=== PATIENT | male | born 1995 | race American Indian/Alaskan Native ===

== ENCOUNTER 2018-03-19 08:11 | Emergency (ER) | payer MEDICAID, OTHER, SELFPAY ==
[2018-03-19] VITALS (7 sets, daily range): BP systolic 106–139; BP diastolic 66–101; PULSE 67–100; RESP 10–18; TEMP 36.3; O2SAT 94–100
--- NOTE | 2018-03-19 08:13 | ED.GENADULT ---
HPI - General Adult General Chief complaint: Altered Mental Status Stated complaint: brought in unresponsive/possible OD Time Seen by Provider: 03/19/18 08:12 Source: patient Mode of arrival: other ( bus) Limitations: altered mental status History of Present Illness HPI narrative: we were called out to the frontal horn unresponsive patient where we found the patient laying down the seats of a bus responsive only to painful stimuli. No reports of trauma. Was struck reports that the patient got on the bus fine and then a insurance business analyst noticed that the patient slumped over and became unresponsive. The insurance business analyst did have Narcan with him. The patient was given 4 mg of intranasal Narcan 1 time and the patient responded within 10-20 seconds. Becoming alert. Patient was not forthcoming with giving any answers. He denied shooting any heroin or taking any meth. He denied using any other drugs. He denied drinking. He states he remembers getting on the bus but then would not answer any other questions after that. he did not answer any questions about where he was coming from where he was going. He states that he felt fine Related Data Home Medications Medication Instructions Recorded Confirmed No Known Home Medications 03/19/18 03/19/18 Allergies Allergy/AdvReac Type Severity Reaction Status Date / Time acetaminophen [From Vicodin] Allergy Unknown Verified 03/19/18 08:36 hydrocodone [From Vicodin] Allergy Unknown Verified 03/19/18 08:36 Review of Systems Review of Systems other than saying he has occasional chest pain patient is unwilling to answer any review of systems questions other ( patient unwilling to answer any questions) Constitutional Denies fever(s) Cardiovascular Reports chest pain ( states he has been having off and on chest pain for some time now) [facility] Medical History Healthy adult (Acute) Social History Smoking Status: Current some day smoker Comment: patient denies medical history unwilling to answer any other past medical family social history Exam Initial Vital Signs Initial Vital Signs: Vital Signs Temperature 97.3 F L 03/19/18 08:22 Pulse Rate 100 H 03/19/18 08:22 Respiratory Rate 10 L 03/19/18 08:22 Blood Pressure 139/101 H 03/19/18 08:22 Pulse Oximetry 100 03/19/18 08:22 Const General: No cooperative ( unwilling to participate in the review of systems), comfortable, well developed and well groomed Orientation: alert and awake [facility] Head: normal to inspection, normocephalic and atraumatic Ears: hearing grossly normal bilaterally Eyes Pupils: PERRL Chest Chest: normal inspection of the chest Resp Effort & Inspection: normal respiratory effort Auscultation: clear to auscultation bilaterally Cardio Rate: regular rate Rhythm: regular rhythm Heart Sounds: no murmurs Pulses: radial pulses present GI Inspection: non-distended Palpation: soft, No firm and No tender Skin Other: patient with a 1 cm area on his left anterior upper arm concerning for a site where he would inject drugs. Does have a small amount of blood in this area. No surrounding erythema. No vesicles. Neuro General: alert and awake Other: After given the Narcan in the bus the patient was able to ambulate off the bus. Extrem Other: No gross deformities Psych Appearance: grossly normal, well kempt and not disheveled Course Orders Ordered: ED Orders 03/19/18 08:14 Consult to Conversion Developer Stat EKG-12 Lead Stat 03/19/18 08:15 Acetaminophen Stat Complete Blood Count AUTO DIFF Stat Comprehensive Metabolic Panel Stat Ethanol (ETOH) Stat Lipase Stat Salicylate Stat 03/19/18 08:30 Urine Drug Screen, Rapid Stat Sodium Chloride (Normal Saline 0.9%) 1,000 mls @ 150 mls/hr IV CONT DAVE Last Admin: 03/19/18 09:07 Dose: 150 mls/hr Discontinued Medications Sodium Chloride (Normal Saline 0.9%) 1,000 mls @ 1,000 mls/hr IV BOLUS ONE Stop: 03/19/18 09:13 Last Infusion: 03/19/18 09:06 Dose: 0 mls/hr Admin: 03/19/18 08:15 Dose: 1,000 mls/hr Vital Signs - 8 hr 03/19/18 08:22 03/19/18 08:42 03/19/18 09:07 Temperature 97.3 F L Pulse Rate 100 H 94 H 91 H Respiratory Rate 10 L 14 10 L Blood Pressure 139/101 H Blood Pressure [Left Arm] 131/98 H 121/92 H Pulse Oximetry 100 99 99 03/19/18 09:51 03/19/18 10:21 03/19/18 11:38 Temperature Pulse Rate 73 67 72 Respiratory Rate 12 12 17 Blood Pressure Blood Pressure [Left Arm] 112/77 106/66 115/83 H Pulse Oximetry 94 94 96 03/19/18 12:10 Temperature Pulse Rate 69 Respiratory Rate 18 Blood Pressure Blood Pressure [Left Arm] 115/77 Pulse Oximetry 96 Medical Decision Making MDM Narrative Medical decision making narrative: patient responded well to 4 mg of intranasal Narcan in the bus. The Narcan that was administered was provided by a overdose kit by the insurance business analyst. Patient was able to ambulate off the bus afterwards. Patient denied taking any illicit substances. He was unwilling to participate in obtaining history. Social work consult placed. Patient was unwilling to talk with social work. Patient did have an elevated alcohol level. His mother was contacted and will come to the emergency department to pick him up. No further Narcan was needed and patient never had any respiratory depression while being here in the emergency department. I suspect that his altered mental status was secondary to alcohol and probable opioid ingestion Despite his denial these. Patient denied suicidal ideation. He was given resources with regard to his substance abuse. Lab Data Result diagrams: 03/19/18 08:15 03/19/18 08:15 Lab Results 03/19/18 03/19/18 03/19/18 Range/Units 08:15 08:15 08:30 WBC 5.4 (4.5-11.0) X10^3/uL RBC 5.28 (4.5-5.9) X10^6/uL Hgb 17.4 (13.5-17.5) g/dL Hct 50.4 (41-53) % MCV 95.4 (80-100) fL MCH 32.9 (26-34) PG MCHC 34.5 (30-36) % RDW 15.6 H (11.6-14.8) % Plt Count 256 (150-400) X10^3/uL Neut % (Auto) 73.5 (50-75) % Lymph % (Auto) 18.7 L (25-40) % [place] % (Auto) 6.6 (3-14) % Eos % (Auto) 0.6 L (2-4) % Baso % (Auto) 0.6 (0-2) % Neut # (Auto) 4000 (5834-3301) /uL Sodium 144 (137-145) mmol/L Potassium 3.9 (3.4-5.1) mmol/L Chloride 105 (98-107) mmol/L Carbon Dioxide 25 (22-32) mmol/L BUN 5 L (9-20) mg/dL Creatinine 0.90 (0.66-1.25) mg/dL Estimated GFR > 60.0 (>60) mL/min BUN/Creatinine Ratio 5.6 L (6-22) Glucose 116 H (70-100) mg/dL Calcium 8.7 (8.4-10.2) mg/dL Total Bilirubin 0.6 (0.2-1.3) mg/dL AST 48 (17-59) IU/L ALT 33 (21-72) IU/L Alkaline Phosphatase 90 (38-126) U/L Total Protein 8.1 (6.3-8.2) g/dL Albumin 4.9 (3.5-5.0) g/dL Globulin 3.2 (1.7-4.1) g/dL Albumin/Globulin Ratio 1.5 (1.0-2.8) Lipase 34 (23-300) U/L Salicylates < 1.0 (<20) mg/dL Urine Opiates Screen Negative (Negative) Ur Oxycodone Screen Negative (Negative) Urine Methadone Screen Negative (Negative) Acetaminophen < 10 L (10-30) ug/mL Ur Barbiturates Screen Negative (Negative) U Tricyclic Antidepress Negative (Negative) Ur Phencyclidine Scrn Negative (Negative) Ur Amphetamines Screen Negative (Negative) U Methamphetamines Scrn Negative (Negative) Ur MDMA Scrn (Ecstasy) Negative (Negative) U Benzodiazepines Scrn Negative (Negative) Urine Cocaine Screen Negative (Negative) U Marijuana (THC) Screen Positive H (Negative) Ethyl Alcohol 332 mg/dL ECG Data Attestation: I personally reviewed and interpreted this ECG as follows: Prior ECG tracings: not available for review Interpretation: sinus tachycardia ventricular rate of 101 normal axis normal QRS Normal QTC No ST T wave changes Discharge Plan Departure Patient Disposition: Home, Self-Care Clinical Impression: Alcoholic intoxication, Altered mental status, Substance abuse Instructions: Alcohol Use Disorder, DI for Alcohol Abuse, DI for Opioid Addiction Activity Restrictions/Additional Instructions: you're not to drive for the next 24 hr or in the future if you decide to take intoxicating substances. Highly recommend that you contact your primary care doctor for a follow-up. Also highly recommend that you seek help for your alcohol and substance abuse. You may return to the emergency department at any point for any new or worsening symptoms. Your discharged into the care of her mother. Prescriptions: No Action No Known Home Medications RF: 0
[2018-03-19] MEDS: SODIUM CHLORIDE 0.9% 1,000 ML 1000 ML IV (08:15)
[2018-03-19 08:32] LABS: Add Manual Diff / Slide Review NO; Basophils Percent Auto 0.6 % (0-2); Eosinophils Percent Auto 0.6 % (2-4); Hematocrit 50.4 % (41-53); Hemoglobin 17.4 g/dL (13.5-17.5); Lymphocytes Percent Auto 18.7 % (25-40); Mean Corpuscular HGB Conc 34.5 % (30-36); Mean Corpuscular Hemoglobin 32.9 PG (26-34); Mean Corpuscular Volume 95.4 fL (80-100); Monocytes Percent Auto 6.6 % (3-14); Neutrophils Absolute Auto 4000 /uL (3000-5900); Neutrophils Percent Auto 73.5 % (50-75); Platelet Count 256 X10^3/uL (150-400); Red Blood Cell Count 5.28 X10^6/uL (4.5-5.9); Red Cell Distribution Width 15.6 % (11.6-14.8); White Blood Cell Count 5.4 X10^3/uL (4.5-11.0)
--- NOTE | 2018-03-19 08:41 | PC.NURSE ---
At this time pt is alert/ oriented to time, place, person. Able to walk w/o difficulty. Clear speech.
[2018-03-19 08:43] LABS: Acetaminophen < 10 ug/mL (10-30); Alanine Aminotransferase 33 IU/L (21-72); Albumin 4.9 g/dL (3.5-5.0); Albumin Globulin Ratio 1.5 (1.0-2.8); Alkaline Phosphatase 90 U/L (38-126); Aspartate Aminotransferase 48 IU/L (17-59); BUN Creatinine Ratio 5.6 (6-22); Bilirubin Total 0.6 mg/dL (0.2-1.3); Blood Urea Nitrogen 5 mg/dL (9-20); Calcium 8.7 mg/dL (8.4-10.2); Carbon Dioxide 25 mmol/L (22-32); Chloride 105 mmol/L (98-107); Estimated Glomerular Filt Rate > 60.0 mL/min (>60); Globulin 3.2 g/dL (1.7-4.1); Glucose 116 mg/dL (70-100); HEMOLYSIS 28 (0-50); Lipase 34 U/L (23-300); Potassium 3.9 mmol/L (3.4-5.1); Salicylate < 1.0 mg/dL (<20); Sodium 144 mmol/L (137-145); Total Protein 8.1 g/dL (6.3-8.2)
[2018-03-19 08:51] LABS: Ethanol (ETOH) 332 mg/dL
[2018-03-19 08:54] LABS: Urine Amphetamines Negative (Negative); Urine Cocaine Negative (Negative); Urine Methamphetamines Negative (Negative); Urine Morphine/Opi cutoff 2000 Negative (Negative); Urine Tetrahydrocannabinol Positive (Negative)
[2018-03-19 08:55] LABS: Urine Barbiturates Negative (Negative); Urine Benzodiazepines Negative (Negative); Urine MDMA Negative (Negative); Urine Methadone Negative (Negative); Urine Oxycodone Negative (Negative); Urine Phencyclidine Negative (Negative); Urine Tricyclic Antidepressant Negative (Negative)
--- NOTE | 2018-03-19 09:03 | PC.NURSE ---
Note: Pt denies ingestion, SI/HI.
[2018-03-19] MEDS: SODIUM CHLORIDE 0.9% 1,000 ML 150 ML IV (09:07)
--- NOTE | 2018-03-19 11:00 | PC.NURSE ---
Pt sleeping, difficult to arouse but once aroused was a/o x 3. Continued to have easy work of breathing, RR 12-14, sat 100% on room air. Dr. Wayne españa and declined additional Narcan at this time.
--- NOTE | 2018-03-19 16:10 | CM.SWNOTE ---
TEAM FOREMAN/Note: Received call from ED staff requesting TEAM FOREMAN consult for overdose. Per ED staff patient found unresponsive on the bus. Patient requiring narcan. Per ED staff this was unintentional overdose of heroin? UA results pending. TEAM FOREMAN met with patient explained CM/SW role. Patient very sleepy/groggy at time of visit. Patient woken up by ED staff. Patient denies using drugs and does not acknowledge needing any assistance. Staff report that patient's Mother/Carie has been notified and that family coming to pick him up. Patient has been medically cleared to discharge. Patient offered community resources for substance abuse. Patient accepted but appears not in the least bit interested. Patient denies suicidal or homicidal ideations during short visit. Notified ED staff that if family had any questions when they arrived to call TEAM FOREMAN. They are agreeable. P: Home today. Community resources provided. JAMES Templeton
== END 2018-03-19 13:48 | disposition home or self-care (01) ==
PROVIDERS: Emergency Provider Emergency Medicine
DX: F10.929 Alcohol use, unspecified with intoxication, unspecified (principal); R41.82 Altered mental status, unspecified; F19.10 Other psychoactive substance abuse, uncomplicated
CPT/HCPCS: 36591; 80053; 80305; 80320; 80329; 83690; 85025; 93005; 93010; 99284; G0480

== ENCOUNTER 2019-02-15 21:52 | Emergency (ER) | payer MEDICAID, OTHER, SELFPAY ==
[2019-02-15 21:53] VITALS: BP 117/77; PULSE 91; RESP 20; TEMP 36.7; O2SAT 99
--- NOTE | 2019-02-15 21:55 | DI.CT.S_ITS ---
PROCEDURE: CT HEAD/BRAIN WO CON INDICATIONS: Drunk with fall TECHNIQUE: Noncontrast 4.5 mm thick angled axial sections acquired from the foramen magnum to the vertex, with coronal and sagittal reformats. For radiation dose reduction, the following was used: automated exposure control, adjustment of mA and/or kV according to patient size. COMPARISON: None. FINDINGS: Image quality: Diagnostic. CSF spaces: Basal cisterns are patent. No extra-axial fluid collections. Ventricles are normal in size and shape. Brain: No midline shift. No intracranial masses or hemorrhage. Jeron[place]-white matter interface is normal. Skull and face: Calvarium and visualized facial bones are intact, without suspicious lesions. Sinuses: Visualized sinuses and mastoids are clear. IMPRESSION: Unremarkable head CT. No acute intracranial hemorrhage. Dictated by: Javad Dugan M.D. on 02/16/2019 at 7:40 Approved by: Javad Dugan M.D. on 02/16/2019 at 7:41
--- NOTE | 2019-02-15 21:55 | DI.CT.S_ITS ---
PROCEDURE: CT CERVICAL SPINE WO CON INDICATIONS: Drunk with fall TECHNIQUE: Noncontrast 3 mm thick sections acquired from the skull base to the T4 level. Sagittal and coronal reformats were then constructed. For radiation dose reduction, the following was used: automated exposure control, adjustment of mA and/or kV according to patient size. COMPARISON: None. FINDINGS: Image quality: Severely limited related to motion artifact Bones: The craniocervical junction and the cervicothoracic junction are adequately visualized and the alignment through this region is well-maintained without a displaced fracture evident. The majority of the cervical spine is not adequately evaluated related to severe motion artifact, particularly limiting evaluation of the C1-C4 levels. There is mild motion artifact extending from C5-C7. No displaced fractures or suspicious osseous lesions are evident. There is no dislocation. Mild reversal of the normal cervical lordosis is evident. No obvious degenerative changes are appreciated. Soft tissues: Prevertebral soft tissues are normal in thickness. No paravertebral hematomas. No apical pneumothoraces. IMPRESSION: Severely limited CT related to motion artifact. No obvious cervical fractures. If there is high clinical concern for fracture, CT or MRI in with sedation is recommended for better evaluation. Note: The preliminary [facility] report and the final report are concordant. Dictated by: Javad Dugan M.D. on 02/16/2019 at 7:37 Approved by: Javad Dugan M.D. on 02/16/2019 at 7:40
--- NOTE | 2019-02-15 21:56 | ED.AMS ---
HPI - Altered Mental Status General Chief Complaint: Altered Mental Status Stated Complaint: Passed out Time Seen by Provider: 02/15/19 21:52 Source: EMS Mode of arrival: EMS Limitations: altered mental status History of Present Illness HPI narrative: Patient is a 23-year-old male brought in by EMS after they were called for the patient being found passed out lying on the ground. EMS reports that they arrived the patient did admit to drinking some alcohol. There is no signs of trauma. He arrived to the emergency department on a backboard and a cervical collar. Related Data Home Medications Medication Instructions Recorded Confirmed No Known Home Medications 03/19/18 03/19/18 Allergies Allergy/AdvReac Type Severity Reaction Status Date / Time acetaminophen [From Vicodin] Allergy Unknown Verified 02/15/19 21:57 hydrocodone [From Vicodin] Allergy Unknown Verified 02/15/19 21:57 Review of Systems Review of Systems ROS Unobtainable: Unobtainable due to mental condition Exam Initial Vital Signs Initial Vital Signs: Vital Signs Temperature 98.0 F 02/15/19 21:53 Pulse Rate 91 H 02/15/19 21:53 Respiratory Rate 20 02/15/19 21:53 Blood Pressure 117/77 02/15/19 21:53 Pulse Oximetry 99 02/15/19 21:53 Const General: No acute distress Orientation: awake and confused [place] Head: normal to inspection and normocephalic Eyes Pupils: PERRL Neck Other: Placed in a cervical collar Resp Effort & Inspection: normal respiratory effort Cardio Rate: regular rate Rhythm: regular rhythm GI Inspection: non-distended Palpation: soft Skin Lesions: no lesions Rashes: no rashes Neuro Other: Patient able to follow some commands but would not answer questions. Extrem General: normal to inspection and capillary refill normal Scores GCS [place] coma scale eye opening: Spontaneous Denise coma scale verbal response: Confused [place] coma scale motor response: Obey commands Denise coma scale total score: 14 Course Orders Ordered: ED Orders 02/15/19 21:55 CT cervical spine wo con Stat CT head/brain wo con Stat 02/15/19 22:05 Complete Blood Count AUTO DIFF Stat Comprehensive Metabolic Panel Stat Ethanol (ETOH) Stat Lipase Stat Vital Signs - 8 hr 02/15/19 21:53 02/15/19 21:58 02/15/19 23:00 Temperature 98.0 F 98.2 F Pulse Rate 91 H 92 H 109 H Respiratory Rate 20 18 22 Blood Pressure 117/77 Blood Pressure [Right Arm] 117/77 122/68 Pulse Oximetry 99 98 95 02/15/19 23:30 02/16/19 00:04 02/16/19 00:30 Temperature Pulse Rate 101 H 96 H 105 H Respiratory Rate 20 20 23 Blood Pressure Blood Pressure [Right Arm] 109/55 L 122/74 121/88 Pulse Oximetry 98 94 02/16/19 01:00 02/16/19 01:30 02/16/19 02:30 Temperature Pulse Rate 93 H 92 H 92 H Respiratory Rate 19 19 18 Blood Pressure Blood Pressure [Right Arm] 108/62 113/70 99/59 L Pulse Oximetry 02/16/19 03:30 Temperature Pulse Rate 96 H Respiratory Rate 18 Blood Pressure Blood Pressure [Right Arm] 109/62 Pulse Oximetry 96 MDM - Altered Mental Status Lab Data Attestation: I reviewed the patient's lab results. Result diagrams: 02/15/19 22:05 02/15/19 22:05 Lab Results 02/15/19 02/15/19 Range/Units 22:05 22:05 WBC 6.7 (4.5-11.0) X10^3/uL RBC 4.98 (4.5-5.9) X10^6/uL Hgb 16.0 (13.5-17.5) g/dL Hct 47.6 (41-53) % MCV 95.6 (80-100) fL MCH 32.1 (26-34) PG MCHC 33.6 (30-36) % RDW 14.1 (11.6-14.8) % Plt Count 372 (150-400) X10^3/uL Neut % (Auto) 68.3 (50-75) % Lymph % (Auto) 24.7 L (25-40) % [place] % (Auto) 5.9 (3-14) % Eos % (Auto) 0.5 L (2-4) % Baso % (Auto) 0.6 (0-2) % Neut # (Auto) 4600 (7733-4837) /uL Lymph # (Auto) 1700 (0618-6486) /uL [place] # (Auto) 400 (0-900) /uL Eos # (Auto) 0 (0-450) /uL Baso # (Auto) 0 (0-100) /uL Sodium 150 H (137-145) mmol/L Potassium 4.0 (3.4-5.1) mmol/L Chloride 111 H (98-107) mmol/L Carbon Dioxide 23 (22-32) mmol/L BUN 8 L (9-20) mg/dL Creatinine 1.00 (0.66-1.25) mg/dL Estimated GFR > 60.0 (>60) mL/min BUN/Creatinine Ratio 8.0 (6-22) Glucose 99 (70-100) mg/dL Calcium 8.6 (8.4-10.2) mg/dL Total Bilirubin 0.3 (0.2-1.3) mg/dL AST 49 (17-59) IU/L ALT 52 (21-72) IU/L Alkaline Phosphatase 71 (38-126) U/L Total Protein 8.2 (6.3-8.2) g/dL Albumin 4.8 (3.5-5.0) g/dL Globulin 3.4 (1.7-4.1) g/dL Albumin/Globulin Ratio 1.4 (1.0-2.8) Lipase 44 (23-300) U/L Ethyl Alcohol 374 mg/dL Point of Care Testing Glucose POC [address] scan - head: Radiologist's impression: No intracranial hemorrhage seen CT cervical spine: Radiologist's impression: Severe motion artifact. No obvious displaced fractures. MDM Narrative Medical decision making narrative: Patient was placed in a cervical collar upon arrival here in the emergency department. He had no obvious trauma. His head CT and cervical spine CT were negative for acute pathology. His alcohol level was elevated. Patient was able to sleep here in the emergency department in became more lucid. He was able to ambulate around the emergency department without any problems. He was alert and oriented. Was clinically sober. Will discharge home. Discharge Plan Departure Patient Disposition: Home Clinical Impression: Alcoholic intoxication Qualifiers: Complication of substance-induced condition: with unspecified complication Qualified Code(s): F10.929 - Alcohol use, unspecified with intoxication, unspecified Instructions: Alcohol Use Disorder Activity Restrictions/Additional Instructions: No driving for the next 24 hours for in the future if you partake in intoxicating substances. Recommend you contact her primary provider for follow-up. Recommend that you consider decreasing the amount of alcohol that you are drinking. Return to the emergency department for any new or worsening symptoms Prescriptions: No Action No Known Home Medications RF: 0
[2019-02-15 21:58] VITALS: BP 117/77; PULSE 92; RESP 18; TEMP 36.8; O2SAT 98
[2019-02-15 22:14] LABS: Add Manual Diff / Slide Review NO; Basophils Absolute Auto 0 /uL (0-100); Basophils Percent Auto 0.6 % (0-2); Eosinophils Absolute Auto 0 /uL (0-450); Eosinophils Percent Auto 0.5 % (2-4); Hematocrit 47.6 % (41-53); Lymphocytes Absolute Auto 1700 /uL (1100-4500); Lymphocytes Percent Auto 24.7 % (25-40); Mean Corpuscular HGB Conc 33.6 % (30-36); Mean Corpuscular Hemoglobin 32.1 PG (26-34); Mean Corpuscular Volume 95.6 fL (80-100); Monocytes Absolute Auto 400 /uL (0-900); Monocytes Percent Auto 5.9 % (3-14); Neutrophils Absolute Auto 4600 /uL (1500-7000); Neutrophils Percent Auto 68.3 % (50-75); Platelet Count 372 X10^3/uL (150-400); Red Blood Cell Count 4.98 X10^6/uL (4.5-5.9); Red Cell Distribution Width 14.1 % (11.6-14.8); White Blood Cell Count 6.7 X10^3/uL (4.5-11.0)
[2019-02-15 22:33] LABS: Alanine Aminotransferase 52 IU/L (21-72); Albumin 4.8 g/dL (3.5-5.0); Albumin Globulin Ratio 1.4 (1.0-2.8); Alkaline Phosphatase 71 U/L (38-126); Aspartate Aminotransferase 49 IU/L (17-59); Bilirubin Total 0.3 mg/dL (0.2-1.3); Blood Urea Nitrogen 8 mg/dL (9-20); Calcium 8.6 mg/dL (8.4-10.2); Carbon Dioxide 23 mmol/L (22-32); Chloride 111 mmol/L (98-107); Estimated Glomerular Filt Rate > 60.0 mL/min (>60); Globulin 3.4 g/dL (1.7-4.1); Glucose 99 mg/dL (70-100); HEMOLYSIS < 15 (0-50); Lipase 44 U/L (23-300); Sodium 150 mmol/L (137-145); Total Protein 8.2 g/dL (6.3-8.2)
[2019-02-15 22:41] LABS: Ethanol (ETOH) 374 mg/dL
[2019-02-15 23:00] VITALS: BP 122/68; PULSE 109; RESP 22; O2SAT 95
--- NOTE | 2019-02-15 23:20 | PC.NURSE ---
Pt sleeping. Changing positions independently, awakens to loud verbal.
[2019-02-15 23:30] VITALS: BP 109/55; PULSE 101; RESP 20; O2SAT 98
--- NOTE | 2019-02-15 23:50 | PC.NURSE ---
Pt aroused by painful stimuli, C-collar removed and pt placed on recumbent position with head of bed elevated.
[2019-02-16 00:04] VITALS: BP 122/74; PULSE 96; RESP 20; O2SAT 94
[2019-02-16 00:30] VITALS: BP 121/88; PULSE 105; RESP 23
--- NOTE | 2019-02-16 00:54 | PC.NURSE ---
Attempted to call pt's mother with permission from patient. Unable to reach mother.
[2019-02-16 01:00] VITALS: BP 108/62; PULSE 93; RESP 19
[2019-02-16 01:30] VITALS: BP 113/70; PULSE 92; RESP 19
[2019-02-16 02:30] VITALS: BP 99/59; PULSE 92; RESP 18
[2019-02-16 03:30] VITALS: BP 109/62; PULSE 96; RESP 18; O2SAT 96
== END 2019-02-16 04:20 | disposition home or self-care (01) ==
LOC: ED 02-16 00:56
PROVIDERS: Emergency Provider Emergency Medicine
DX: F10.929 Alcohol use, unspecified with intoxication, unspecified (principal); R55 Syncope and collapse; W19.XXXA Unspecified fall, initial encounter; Y90.8 Blood alcohol level of 240 mg/100 ml or more
CPT/HCPCS: 36591; 70450; 72125; 80053; 80320; 82962; 83690; 85025; 99284